=== PATIENT | female | born 1975 | race Caucasian/White ===

== ENCOUNTER 2023-04-15 12:07 | Emergency (ER) | payer MEDICAID ==
[~2023-04-15] VITALS: Ht 162.6 cm; Wt 68.0 kg
[2023-04-15 12:12] VITALS: BP_SYST 132; PULSE 56; RESP 16; O2SAT 100
[2023-04-15] MEDS ORDERED: KETOROLAC TROMETHAMINE 30 MG VIAL IM ONE (12:30)
[2023-04-15] MEDS ORDERED: MECLIZINE HCL 25 MG TABLET (ANITVERT) PO ONE (12:30)
[2023-04-15] MEDS ORDERED: MECLIZINE HCL 25 MG TABLET (ANITVERT) ONE (12:41)
[2023-04-15 13:17] LABS: ANION GAP 7 (5-15); CALCIUM 8.7 mg/dL (8.4-11.0); CARBON DIOXIDE 27 mmol/L (23-29); CHLORIDE 104 mmol/L (98-107); CREATININE 0.82 mg/dL (0.55-1.30); GFR AFRICAN AMERICAN 96 mL/min (>90); GLUCOSE 100 mg/dL (74-106); SODIUM SERUM 138 mmol/L (136-145); UREA NITROGEN, BLOOD 15 mg/dL (8-21)
[2023-04-15 13:26] LABS: GFR NON AFRICAN-AMERICAN 79 mL/min (>90)
[2023-04-15 13:29] LABS: BASOPHILS % (AUTO) 0.3 % (0.0-2.0); EOSINOPHILS # (AUTO) 0.1 K/uL (0.0-0.4); EOSINOPHILS % (AUTO) 2.7 % (0.0-4.0); LYMPHOCYTES # (AUTO) 1.4 K/uL (1.0-5.5); LYMPHOCYTES % (AUTO) 29.1 % (20.5-51.5); MEAN CORPUSCULAR HEMOGLOBIN 32 pg (27-31); MEAN CORPUSCULAR HGB CONC 33 % (32-36); MEAN CORPUSCULAR VOLUME 97 fL (79.0-98.0); MONOCYTES # (AUTO) 0.4 K/uL (0.0-1.0); MONOCYTES % (AUTO) 8.2 % (1.7-9.3); NEUTROPHILS # (AUTO) 2.9 K/uL (1.8-7.7); NEUTROPHILS % (AUTO) 59.7 % (40.0-70.0); PLATELET COUNT (AUTO) 178 K/uL (130-430); RED BLOOD CELL COUNT(AUTO) 4.34 MIL/uL (4.2-6.2); RED CELL DISTRIBUTION WIDTH 13.4 % (9.0-15.0); WHITE BLOOD COUNT (AUTO) 4.9 K/uL (4.8-10.8)
[2023-04-15] MEDS ORDERED: BUTA1CAP43 PO (13:55)
[2023-04-15] MEDS ORDERED: MECL-109 PO (13:55)
[2023-04-15 15:00] VITALS: BP_SYST 125; PULSE 56; RESP 16; TEMP 98.4; O2SAT 97
== END 2023-04-15 15:00 | disposition home or self-care (01) ==
LOC: SED 12:07
DX: R42 Dizziness and giddiness (principal); R51.9 Headache, unspecified; Z79.899 Other long term (current) drug therapy
CPT/HCPCS: 99285; 70450; 80048; 85025; 84484; 36415; 93005; 76376; 96372; J8597; J1885

== ENCOUNTER 2024-01-21 02:45 | Emergency (ER) | payer SELFPAY ==
[~2024-01-21] VITALS: Ht 165.1 cm; Wt 82.6 kg
[~2024-01-21 02:45] MED LIST: BUTA1CAP43 PO; MECL-109 PO
[2024-01-21 02:59] VITALS: BP_SYST 127; PULSE 66; RESP 19; TEMP 97.9; O2SAT 99
[2024-01-21 03:58] LABS: BILIRUBIN,URINE NEGATIVE (NEGATIVE); CLARITY/URINE SL CLOUDY (CLEAR); COLOR,URINE YELLOW (YELLOW); GLUCOSE,URINE NEGATIVE (NEGATIVE); KETONES,URINE NEGATIVE (NEGATIVE); LEUKOCYTE ESTERASE ,URINE 2+ (NEGATIVE); NITRITE, URINE NEGATIVE (NEGATIVE); PROTEIN URINE NEGATIVE (NEGATIVE); UROBILINOGEN,URINE 0.2 (0.2-1.0)
[2024-01-21 04:18] LABS: BLOOD, URINE TRACE (NEGATIVE)
[2024-01-21 04:19] LABS: BACTERIA,URINE MANY /HPF (None Seen); WBC,URINE >100 /HPF (0-3)
[2024-01-21] MEDS ORDERED: IBUP-1971 PO (04:21)
[2024-01-21] MEDS ORDERED: CIPR500T5 PO (04:21)
[2024-01-21] MEDS ORDERED: PHEN-890 PO (04:21)
[2024-01-21] MEDS: KETOROLAC TROMETHAMINE 60 MG/2 ML VIAL IM ONE (04:30)
[2024-01-21 05:09] VITALS: BP_SYST 110; PULSE 67; RESP 18; TEMP 98.1; O2SAT 98
[2024-01-23] MEDS ORDERED: NITR-85 PO (12:30)
== END 2024-01-21 05:09 | disposition home or self-care (01) ==
LOC: SED 02:45
DX: N39.0 Urinary tract infection, site not specified (principal); R10.30 Lower abdominal pain, unspecified; F17.200 Nicotine dependence, unspecified, uncomplicated; Z98.890 Other specified postprocedural states; Z79.899 Other long term (current) drug therapy; Z79.2 Long term (current) use of antibiotics
CPT/HCPCS: 99283; 81001; 87086; 81025; 96372; J1885; 81000; 81015; 87186